=== PATIENT | male | born 1965 ===

== ENCOUNTER 2024-08-24 22:38 | Inpatient (IN) | payer BC, MEDICAID ==
[2024-08-24 22:58] LABS: BASOPHILS ABSOLUTE AUTO 0.1 x10^3/uL (0.0-0.2); BASOPHILS PERCENT AUTO 1.1 % (0.2-1.2); EOSINOPHILS ABSOLUTE AUTO 0.2 x10^3/uL (0.0-0.5); EOSINOPHILS PERCENT AUTO 2.7 % (0.0-4.0); IMMATURE GRAN ABSOLUTE AUTO 0.03 x10^3/uL (0.00-0.07); LYMPHOCYTES ABSOLUTE AUTO 2.4 x10^3/uL (1.0-4.8); LYMPHOCYTES PERCENT AUTO 26.5 % (25.0-50.0); MEAN CORPUSCULAR HEMOGLOBIN 29.6 pg (26.0-32.0); MEAN CORPUSCULAR HGB CONC 32.1 g/dL (32.0-36.0); MEAN CORPUSCULAR VOLUME 92.2 fL (78.0-93.0); MONOCYTES ABSOLUTE AUTO 0.9 x10^3/uL (0.0-0.8); MONOCYTES PERCENT AUTO 10.4 % (2.0-11.0); NEUTROPHILS ABSOLUTE AUTO 5.3 x10^3/uL (1.8-7.7); PLATELET COUNT,PLT 380 x10^3/uL (130-400); RED BLOOD CELL COUNT 2.06 x10^6/uL (4.5-6.0); WHITE BLOOD CELL COUNT,WBC 8.9 x10^3/uL (4.0-10.0)
[2024-08-24 22:59] LABS: HEMOGLOBIN 6.1 g/dL (14.0-18.0)
[2024-08-24] MEDS: Acetaminophen 500 MG Tab PO ONE (23:15)
[2024-08-24 23:19] LABS: A/G RATIO 0.91; ALANINE AMINOTRANSFERASE,ALT 15 U/L (16-63); ALBUMIN 3.1 g/dL (3.4-5.0); ALKALINE PHOSPHATASE 73 U/L (46-116); ASPARTATE AMNIOTRANSFERASE,AST 12 U/L (15-37); BILIRUBIN TOTAL 0.2 mg/dL (0.2-1.0); BLOOD UREA NITROGEN,BUN 63 mg/dL (7-18); CALCIUM 8.9 mg/dL (8.5-10.1); CARBON DIOXIDE,CO2 22 mmol/L (21-32); CHLORIDE,CL 104 mmol/L (98-107); GLUCOSE RANDOM 231 mg/dL (70-99); LIPASE 64 U/L (19-71); POTASSIUM,K 5.6 mmol/L (3.5-5.1); PROTEIN TOTAL,TP 6.5 g/dL (6.4-8.2); SODIUM,NA 138 mmol/L (136-145)
[2024-08-24 23:22] LABS: ANION GAP 17.6 mmol/L (5-15); ESTIMATED GFR 13 mL/min (>=60)
[2024-08-24 23:23] LABS: CREATININE 4.8 mg/dL (0.70-1.30)
[2024-08-24] MEDS ORDERED: Sodium Chloride 0.9% 10 ML Syringe FLUSH PRN (23:57)
[2024-08-25] MEDS: LORazepam 2 MG/ML SDV IVPUSH ONE (00:20)
[2024-08-25] MEDS ORDERED: Flumazenil 0.1 MG/ML 5 ML MDV IVPUSH PRN (00:21)
[2024-08-25] MEDS: Sodium Chloride 0.9% 1,000 ML IV SCH ×2 (02:05→09:08)
[2024-08-25] MEDS: Sodium Chloride 0.9% 1,000 ML IV ONE (07:36)
[2024-08-25] MEDS ORDERED: 50% Dextrose in Water 50 ML Syringe IVPUSH PRN (08:36)
[2024-08-25] MEDS ORDERED: Glucagon,Human Recombinant 1 MG Vial IM PRN (08:36)
[2024-08-25] MEDS ORDERED: risperiDONE 1 MG Tab PO PRN (08:36)
[2024-08-25] MEDS ORDERED: Bisacodyl 10 MG Supp RECTAL PRN (08:36)
[2024-08-25] MEDS ORDERED: Calcium Carbonate 750 MG Tab.Chew PO PRN (08:36)
[2024-08-25 10:35] LABS: MEAN CORPUSCULAR HEMOGLOBIN 30.1 pg (26.0-32.0); MEAN CORPUSCULAR HGB CONC 32.4 g/dL (32.0-36.0); MEAN CORPUSCULAR VOLUME 92.9 fL (78.0-93.0); PLATELET COUNT,PLT 359 x10^3/uL (130-400); RED BLOOD CELL COUNT 1.83 x10^6/uL (4.5-6.0); WHITE BLOOD CELL COUNT,WBC 6.6 x10^3/uL (4.0-10.0)
[2024-08-25 10:55] LABS: HEMOGLOBIN 5.5 g/dL (14.0-18.0)
[2024-08-25 10:57] LABS: A/G RATIO 0.87; ALANINE AMINOTRANSFERASE,ALT 13 U/L (16-63); ALBUMIN 2.6 g/dL (3.4-5.0); ALKALINE PHOSPHATASE 63 U/L (46-116); ASPARTATE AMNIOTRANSFERASE,AST 10 U/L (15-37); BILIRUBIN TOTAL 0.2 mg/dL (0.2-1.0); BLOOD UREA NITROGEN,BUN 58 mg/dL (7-18); CALCIUM 8.1 mg/dL (8.5-10.1); CARBON DIOXIDE,CO2 21 mmol/L (21-32); CHLORIDE,CL 109 mmol/L (98-107); GLUCOSE RANDOM 150 mg/dL (70-99); POTASSIUM,K 5.4 mmol/L (3.5-5.1); PROTEIN TOTAL,TP 5.6 g/dL (6.4-8.2); SODIUM,NA 141 mmol/L (136-145)
[2024-08-25 11:07] LABS: ANION GAP 16.4 mmol/L (5-15)
[2024-08-25 11:09] LABS: CREATININE 4.3 mg/dL (0.70-1.30); ESTIMATED GFR 15 mL/min (>=60)
[2024-08-25 11:25] LABS: EOSINOPHILS ABSOLUTE MAN 0.4 x10^3/uL (0.0-0.5); EOSINOPHILS PERCENT MAN 6 % (0-4); LYMPHOCYTES ABSOLUTE MAN 2.7 x10^3/uL (1.0-4.8); LYMPHOCYTES PERCENT MAN 40 % (25-50); MONOCYTES ABSOLUTE MAN 0.4 x10^3/uL (0.0-0.8); MONOCYTES PERCENT MAN 6 % (2-11); NEUTROPHILS ABSOLUTE MAN 3.1 x10^3/uL (1.8-7.7); SEG NEUTROPHILS PERCENT MAN 47 % (50-80)
[2024-08-25] MEDS: Carvedilol 25 MG Tab PO SCH (12:45)
[2024-08-25] MEDS: Aspirin 81 MG Tab.EC PO SCH (12:45)
[2024-08-25] MEDS: Lactulose Soln 10 GM/15 ML 30 ML UD Cup PO SCH (12:45)
[2024-08-25] MEDS: Insulin Glarg,Human.Rec.Analog 100 Unit/ML 10 ML Vial SUBCUT SCH (12:46)
[2024-08-25] MEDS: Polyethylene Glycol 3350 Powder 17 GM Packet PO SCH (12:47)
[2024-08-25] MEDS: amLODIPine 10 MG Tab PO SCH (12:47)
[2024-08-25] MEDS: Pantoprazole 20 MG Tab, Delayed Release PO SCH (12:47)
[2024-08-25] MEDS: atorvaSTATin 10 MG Tab PO SCH (12:47)
[2024-08-25] MEDS: Sennosides/Docusate Sodium 50-8.6 MG Tab PO SCH (12:48)
[2024-08-25] MEDS: FLUoxetine 20 MG Cap PO SCH (12:48)
[2024-08-25] MEDS: Acetaminophen 325 MG Tab PO SCH (12:48)
[2024-08-25] MEDS: Insulin Lispro 100 Units/ML 3 ML Vial SUBCUT SCH ×2 (12:49→17:34)
[2024-08-25] MEDS ORDERED: Ondansetron 4 MG Tab.DIS PO PRN (14:29)
[2024-08-25] MEDS: risperiDONE 1 MG Tab PO PRN (19:29)
[2024-08-25 19:46] LABS: HEMATOCRIT 26.1 % (40.0-52.0); HEMOGLOBIN 8.8 g/dL (14.0-18.0); MEAN CORPUSCULAR HEMOGLOBIN 30.3 pg (26.0-32.0); MEAN CORPUSCULAR HGB CONC 33.7 g/dL (32.0-36.0); RED BLOOD CELL COUNT 2.9 x10^6/uL (4.5-6.0); WHITE BLOOD CELL COUNT,WBC 7.9 x10^3/uL (4.0-10.0)
[2024-08-25 19:57] LABS: ANION GAP 17.3 mmol/L (5-15); BLOOD UREA NITROGEN,BUN 54 mg/dL (7-18); CALCIUM 8.3 mg/dL (8.5-10.1); CARBON DIOXIDE,CO2 20 mmol/L (21-32); CHLORIDE,CL 107 mmol/L (98-107); GLUCOSE RANDOM 259 mg/dL (70-99); POTASSIUM,K 5.3 mmol/L (3.5-5.1); SODIUM,NA 139 mmol/L (136-145)
[2024-08-25 19:59] LABS: CREATININE 4.1 mg/dL (0.70-1.30); ESTIMATED GFR 16 mL/min (>=60)
[2024-08-25] MEDS: Enoxaparin 30 MG/0.3 ML Syringe SUBCUT SCH (20:12)
[2024-08-25] MEDS: LORazepam 2 MG/ML SDV IVPUSH PRN (21:10)
[2024-08-26] MEDS: Haloperidol Lactate 5 MG/ML SDV IV ONE (01:18)
[2024-08-26] MEDS: Haloperidol Lactate 5 MG/ML SDV IV PRN (04:54)
[2024-08-26 08:21] LABS: BASOPHILS ABSOLUTE AUTO 0.1 x10^3/uL (0.0-0.2); BASOPHILS PERCENT AUTO 1.2 % (0.2-1.2); EOSINOPHILS ABSOLUTE AUTO 0.4 x10^3/uL (0.0-0.5); EOSINOPHILS PERCENT AUTO 4.1 % (0.0-4.0); HEMATOCRIT 26.8 % (40.0-52.0); HEMOGLOBIN 8.9 g/dL (14.0-18.0); IMMATURE GRAN ABSOLUTE AUTO 0.02 x10^3/uL (0.00-0.07); LYMPHOCYTES ABSOLUTE AUTO 2.3 x10^3/uL (1.0-4.8); LYMPHOCYTES PERCENT AUTO 25.2 % (25.0-50.0); MEAN CORPUSCULAR HEMOGLOBIN 29.6 pg (26.0-32.0); MEAN CORPUSCULAR HGB CONC 33.2 g/dL (32.0-36.0); MONOCYTES PERCENT AUTO 10.5 % (2.0-11.0); NEUTROPHILS ABSOLUTE AUTO 5.4 x10^3/uL (1.8-7.7); NEUTROPHILS PERCENT AUTO 58.8 % (50.0-80.0); PLATELET COUNT,PLT 354 x10^3/uL (130-400); RED BLOOD CELL COUNT 3.01 x10^6/uL (4.5-6.0); WHITE BLOOD CELL COUNT,WBC 9.2 x10^3/uL (4.0-10.0)
[2024-08-26 08:46] LABS: A/G RATIO 0.94; ALANINE AMINOTRANSFERASE,ALT 14 U/L (16-63); ALKALINE PHOSPHATASE 73 U/L (46-116); ASPARTATE AMNIOTRANSFERASE,AST 12 U/L (15-37); BILIRUBIN TOTAL 0.3 mg/dL (0.2-1.0); BLOOD UREA NITROGEN,BUN 46 mg/dL (7-18); CALCIUM 8.6 mg/dL (8.5-10.1); CARBON DIOXIDE,CO2 17 mmol/L (21-32); CHLORIDE,CL 107 mmol/L (98-107); GLUCOSE RANDOM 156 mg/dL (70-99); POTASSIUM,K 4.7 mmol/L (3.5-5.1); PROTEIN TOTAL,TP 6.2 g/dL (6.4-8.2); SODIUM,NA 138 mmol/L (136-145)
[2024-08-26 08:47] LABS: ANION GAP 18.7 mmol/L (5-15)
[2024-08-26 08:48] LABS: CREATININE 3.7 mg/dL (0.70-1.30); ESTIMATED GFR 18 mL/min (>=60)
[2024-08-26] MEDS: LORazepam 1 MG Tab PO ONE (10:36)
[2024-08-27] MEDS ORDERED: Bisacodyl 5 MG Tab PO SCH (09:00)
[2024-08-27] MEDS ORDERED: cloNIDine 0.1 MG/Day Transdermal Patch TRDERM SCH (09:00)
[2024-08-27] MEDS ORDERED: Remove Patch CLONIDINE TRDERM SCH (09:00)
== END 2024-08-26 11:40 | DRG 683 ==
LOC: VM.ED 22:38 → VM.MS 23:52
PROVIDERS: ADMIT Nurse Practitioner Family; ATTEND Family Medicine
PROC: 30233N1 Transfusion of Nonautologous Red Blood Cells into Peripheral Vein, Percutaneous Approach (ICD-10-PCS; principal; 2024-08-25)
DX: N17.9 Acute kidney failure, unspecified (principal); I13.0 Hypertensive heart and chronic kidney disease with heart failure and stage 1 through stage 4 chronic kidney disease, or unspecified chronic kidney disease; I69.354 Hemiplegia and hemiparesis following cerebral infarction affecting left non-dominant side; N18.4 Chronic kidney disease, stage 4 (severe); D63.1 Anemia in chronic kidney disease; E11.22 Type 2 diabetes mellitus with diabetic chronic kidney disease; I50.9 Heart failure, unspecified; E78.5 Hyperlipidemia, unspecified; E11.42 Type 2 diabetes mellitus with diabetic polyneuropathy; R33.9 Retention of urine, unspecified; F32.A Depression, unspecified; Z79.82 Long term (current) use of aspirin; Z79.4 Long term (current) use of insulin; Z79.899 Other long term (current) drug therapy; Z97.8 Presence of other specified devices
CPT/HCPCS: 36415; 36430; 71045; 80048; 80053; 82947; 83690; 84484; 85025; 85027; 86850; 86900; 86901; 86920; 86922; 87070; 93005; 93010; 99284; 99285; A9270-GY; J1630; J1650; J1815-GY; J2060; J7030; P9016